=== PATIENT | female | born 1995 | race Caucasian/White ===

== ENCOUNTER → 2020-08-22 | Outpatient (REF) | payer OTHER ==
[2020-08-22 16:14] LABS: CHLAMYDIA DNA AMPLIFICATION NEGATIVE (NEGATIVE); GC DNA AMPLIFICATION NEGATIVE (NEGATIVE)
== END ==
LOC: M WUC 13:46
PROVIDERS: ATTEND Physician Assistant
DX: N76.0 Acute vaginitis (principal)